=== PATIENT | male | born 1950 | race Caucasian/White ===

== ENCOUNTER 2023-10-21 11:30 | Observation (INO) ==
[2023-10-21 12:12] LABS: ABS Basophils 0.1 10^3/uL (0.0-0.1); ABS Eosinophils 0.1 10^3/uL (0.0-0.5); ABS Lymphocytes 1.8 10^3/uL (1.0-4.8); ABS Monocytes 0.6 10^3/uL (0.0-1.1); ABS Neutrophils 4.2 10^3/uL (1.5-7.6); ABS Nucleated RBC 0.01 10^3/ul; Eosinophil % 1.5 %; Hematocrit 44.2 % (38-53); Hemoglobin 15.4 g/dL (13.2-16.3); Lymphocyte % 27.3 %; Mean Corpuscular Hemoglobin 31.2 pg (27-33); Mean Corpuscular Hgb Conc 34.7 g/dL (31-36); Mean Corpuscular Volume 89.8 fL (80-97); Mean Platelet Volume 8.5 fL (7.5-11.2); Nucleated Red Blood Cells % 0.1 %/100WBC (0.0-0.8); Platelet Count 281 10^3/uL (150-450); Red Blood Count 4.92 10^6/uL (4.06-5.63); White Blood Count 6.7 10^3/uL (3.6-10.2)
[2023-10-21 12:22] LABS: INR 1.03 (0.85-1.14)
[2023-10-21 12:35] LABS: High Sens Troponin Baseline 8 pg/mL (<20)
[2023-10-21 12:36] LABS: ALT 32 U/L (7-52); AST 26 U/L (13-39); Albumin 4.6 g/dL (3.2-5.2); Albumin/Globulin Ratio 1.7 (1-3); Alkaline Phosphatase 37 U/L (35-149); Anion Gap 10 mmol/L (2-16); Blood Urea Nitrogen 11 mg/dL (6-24); CO2 Carbon Dioxide 29 mmol/L (22-32); Calcium 9.8 mg/dL (8.6-10.3); Chloride 100 mmol/L (101-111); Globulin 2.7 g/dL (2-4); Glucose 120 mg/dL (70-100); Potassium 4.5 mmol/L (3.5-5.0); Sodium 139 mmol/L (135-145); Total Bilirubin 0.7 mg/dL (0.2-1.0); Total Protein 7.3 g/dL (6.4-8.9); eGFR CKD-EPI 91.3 (>60)
[2023-10-21 14:54] LABS: High Sensitivity Troponin 1 Hr 9 pg/mL (<20)
[2023-10-21 15:40] LABS: Magnesium 1.9 mg/dL (1.9-2.7)
[2023-10-21 15:53] LABS: Urine Appearance Clear; Urine Bilirubin Negative (Negative); Urine Blood Negative (Negative); Urine Color Light-Yellow; Urine Glucose Negative (Negative); Urine Ketones Negative (Negative); Urine Nitrite Negative (Negative); Urine Protein Negative (Negative); Urine Specific Gravity 1.013 (1.002-1.030); Urine Urobilinogen Negative (Negative)
[2023-10-21 18:40] LABS: TSH Ultra Thyroid Stim Horm 1.22 mcIU/mL (0.34-5.60)
[2023-10-21 18:51] LABS: Folate > 20.00 ng/mL (5.90-24.80)
[2023-10-21 18:52] LABS: Vitamin B12 359 pg/mL (180-914)
[2023-10-21] MEDS ORDERED: Senna TAB 8.6 mg TAB PO PRN (18:54)
[2023-10-21] MEDS ORDERED: Sulfur Hexaflouride MICROSPHR 25 MG VIAL IV PRN (18:58)
[2023-10-21] MEDS: Aspirin EC 81 mg TAB.EC (enteric coated) PO SCH (20:44)
[2023-10-21] MEDS: Enoxaparin 40 MG/0.4 ML SYR SUBCUT SCH (20:44)
[2023-10-21] MEDS: Magnesium Sulfate IV 1GM/100ML 1 GM/100 ML BAG IV ONE (21:31)
[2023-10-22 09:10] LABS: ABS Basophils 0.1 10^3/uL (0.0-0.1); ABS Eosinophils 0.2 10^3/uL (0.0-0.5); ABS Lymphocytes 1.9 10^3/uL (1.0-4.8); ABS Monocytes 0.6 10^3/uL (0.0-1.1); Eosinophil % 2.2 %; Hematocrit 41.8 % (38-53); Hemoglobin 14.2 g/dL (13.2-16.3); Lymphocyte % 24.7 %; Mean Corpuscular Hemoglobin 30.7 pg (27-33); Mean Corpuscular Hgb Conc 33.9 g/dL (31-36); Mean Corpuscular Volume 90.4 fL (80-97); Mean Platelet Volume 8.6 fL (7.5-11.2); Platelet Count 270 10^3/uL (150-450); Red Blood Count 4.62 10^6/uL (4.06-5.63); Red Cell Distribution Width 14.3 % (12-17); White Blood Count 7.9 10^3/uL (3.6-10.2)
[2023-10-22 09:49] LABS: Creatinine, Serum 0.94 mg/dL (0.67-1.17); Magnesium 1.9 mg/dL (1.9-2.7); Potassium 4.9 mmol/L (3.5-5.0); eGFR CKD-EPI 86.7 (>60)
[2023-10-22 14:21] VITALS: BP 149/74
== END 2023-10-22 14:40 | disposition home or self-care (01) ==
LOC: EDHOLD 11:30 → ED 11:30 → MEDTELE 10-22 00:38
PROVIDERS: ADMIT Internal Medicine; ATTEND Internal Medicine